=== PATIENT | male | born 1980 | race Caucasian/White ===

== ENCOUNTER 2017-01-20 18:43 | Emergency (ER) | payer OTHER ==
[2017-01-20] MEDS ORDERED: ACETAMINOPHEN 325 MG TABLET PO STA (20:08)
[2017-01-20] MEDS ORDERED: IBUPROFEN 600 MG TABLET PO STA (20:08)
[2017-01-20] MEDS ORDERED: IBUPROFEN 600 MG TABLET PO ONE (20:28)
[2017-01-20] MEDS ORDERED: ACETAMINOPHEN 325 MG TABLET PO ONE (20:28)
[2017-01-20 20:29] VITALS: BP 125/82
--- NOTE | 2017-01-20 20:42 | XRAY Preliminary Report ---
Exam: XR Ankle 3 View RT IMPRESSION: Normal ankle radiography. [facility] SITE ID: [id number]
--- NOTE | 2017-01-20 20:44 | XRAY Report ---
EXAM: RIGHT ANKLE RADIOGRAPHY EXAM DATE: 01/20/2017 08:22 PM. CLINICAL HISTORY: Inversion injury. Ankle pain. COMPARISON: None. TECHNIQUE: 3 views. FINDINGS: Bones: Normal. No fractures or bone lesions. Joints: Normal. No effusion. No subluxations. The ankle mortise is normally aligned. Soft Tissues: Normal. No soft tissue swelling. IMPRESSION: Normal ankle radiography. [facility] Referring Provider Line: [phone] SITE ID: [id number]
--- NOTE | 2017-01-20 20:49 | ED Physician Documentation ---
PD HPI LOWER EXT INJURY - Stated complaint Stated Complaint: RT ANKLE INJ - Chief complaint Chief Complaint: Ext Problem - History obtained from History obtained from: Patient - History of Present Illness PD HPI LOW EXT INJURY LOCATION: Right, Ankle Type of injury: Twist (inversion) Timing - onset: Today (had inversion sprain 2-3 months ago and ankle hurts at time after working out, but then with inversion acute injury again today.) Timing - details: Abrupt onset, Still present Worsened by: Moving, Palpating, Other (walking particularly step off or twisting.) Associated symptoms: Swelling. No: Weakness, Numbness Similar symptoms before: No diagnosis (sprain) Recently seen: Not recently seen Review of Systems Skin: denies: Abrasion (s), Laceration (s) Neurologic: denies: Focal weakness, Numbness PD PAST MEDICAL HISTORY - Past Medical History Past Medical History: No - Past Surgical History Ortho: Spine surgery - Present Medications Home Medications: Ambulatory Orders Medication Instructions Recorded Confirmed Ibuprofen [Motrin] 600 mg PO TID #20 tab 01/20/17 - Allergies Allergies/Adverse Reactions: Allergies Allergy/AdvReac Type Severity Reaction Status Date / Time hydromorphone HCl * Allergy Unknown Verified 01/20/17 18:51 [From Dilaudid] - Social History Does the pt smoke?: No Smoking Status: Never smoker Does the pt drink ETOH?: No Does the pt have substance abuse?: No - Immunizations Immunizations are current?: Yes PD ED PE NORMAL - Vitals Vital signs reviewed: Yes - General General: Alert and oriented X 3, No acute distress, Well developed/nourished - Derm Derm: Normal color, Warm and dry, No rash - Extremities Extremities: No calf tenderness / cord, Other (right ankle with tenderness and swelling laterally anterodistal to malleolus. Achilles and medially not tender. ) - Neuro Neuro: No motor deficit, No sensory deficit Results - Vitals Vitals: Oxygen O2 Source Room air - Rads (name of study) ankle Radiology: Prelim report reviewed, EMP read contemporaneously (no fracture right ankle) PD MEDICAL DECISION MAKING - ED course Complexity details: reviewed results, considered differential, d/w patient Departure - Departure Disposition: 01 Home, Self Care Clinical Impression: Ankle sprain Qualifiers: Encounter type: initial encounter Involved ligament of ankle: other ligament Laterality: right Qualified Code(s): S93.491A - Sprain of other ligament of right ankle, initial encounter Condition: Stable Record reviewed to determine appropriate education?: Yes Instructions: ED Sprain Ankle W X Ray Prescriptions: Ibuprofen [Motrin] 600 mg PO TID #20 tab Comments: Use ankle brace when up and around for the next 2-3 weeks until it fully healed. There is no fractures on x-ray. This would be an ankle sprain but may have a partial tear of some of the ligaments that can take several weeks to heal up. Progress activity as able and weightbearing is good. No running or vigorous sports however. Use ibuprofen 3 times a day. Add Tylenol if needed. Follow-up with your primary care if not better over the next week. Forms: Activity restrictions Discharge Date/Time: 01/20/17 21:08
== END 2017-01-20 21:08 | disposition home or self-care (01) ==
LOC: ED 18:43
DX: S93.491A Sprain of other ligament of right ankle, initial encounter (principal); X50.9XXA Other and unspecified overexertion or strenuous movements or postures, initial encounter
CPT/HCPCS: 73610; 99283; A9270

== ENCOUNTER 2017-07-01 08:44 | Outpatient (CLI) | payer OTHER ==
--- NOTE | 2017-07-01 11:53 | MRI Report ---
EXAM: MRI CERVICAL SPINE WITHOUT CONTRAST EXAM DATE: 07/01/2017 09:20 AM. CLINICAL HISTORY: Cervicalgia. History of surgery in 2011 with artificial disk inserted at C6. COMPARISONS: None available. TECHNIQUE: Multiplanar, multisequence T1-weighted and fluid-sensitive sequences of the cervical spine without contrast. Other: None. FINDINGS: Susceptibility artifact from fixation hardware centered in the region of the C6-C7 disk spa ce significantly limits evaluation of the mid to lower cervical spine. Neurologic Structures: The visualized posterior fossa structures are unremarkable. No signal abnormal ity in the visualized portions of the spinal cord. Alignment: No scoliosis or spondylolisthesis in the visualized portions. Bone Marrow: No gross fracture, bone lesion, or bone marrow edema in the visualized portions. Interspace Levels/Facets: C1-C2: Mild degenerative change anteriorly. C2-C3: Minimal disk osteophyte complex. Mild bilateral facet hypertrophy. Mild right neural foramen s tenosis. C3-C4: Minimal disk osteophyte complex. Mild bilateral facet hypertrophy. Moderate left neural forame n stenosis. C4-C5: Minimal disk osteophyte complex. Mild bilateral facet hypertrophy. Mild right neural foramen s tenosis. C5-C6: Significantly limited evaluation due to artifact. C6-C7: Significantly limited evaluation due to artifact. C7-T1: Significantly limited evaluation due to artifact. T1-T2: Minimal disk osteophyte complex. Mild bilateral facet hypertrophy. No gross stenosis. Musculature: No edema or fatty atrophy. Other: The visualized paravertebral and prevertebral soft tissues are unremarkable. IMPRESSION: 1. Significantly limited evaluation due to artifact from internal fixation hardware. May consider CT or CT myelogram for further evaluation. 2. Minimal degenerative disk and mild degenerative facet changes in the visualized upper to mid cervi ruth spine. 3. Varying degrees of neural foramen stenosis in the visualized upper to mid cervical spine, most pro minent at C3-C4 on the left where there is moderate stenosis. [facility] Referring Provider Line: [phone] SITE ID: [id number]
== END 2017-07-01 08:45 | disposition home or self-care (01) ==
LOC: DI 08:44
PROVIDERS: ATTEND Family Medicine
DX: M47.892 Other spondylosis, cervical region (principal); M50.30 Other cervical disc degeneration, unspecified cervical region
CPT/HCPCS: 72141

== ENCOUNTER 2018-11-24 15:19 | Outpatient (CLI) | payer OTHER ==
[2018-11-24 16:35] VITALS: BP 90/60
--- NOTE | 2018-11-24 16:35 | CONSULTATION NOTE ---
Information from patient questionnaire entered by Cielo Morley. I have reviewed and concur with the information entered by Cielo Morley. This document represents the service I personally performed and the decisions made by me, Mary Lou Guerra MD, [facility]. - History of Present Illness Chief Complaint: Unrefreshed sleep, Fatigue, Frequent awakenings at night I had the pleasure of seeing YO MERLOS today regarding the possibility of him having a sleep disorder. His current complaints are frequent awakenings at nig ht, non-restorative sleep, and daytime sleepiness. The patient tells me that he normally goes to bed around 9:30-10:30 pm, and it takes him variable amount of time to fall asleep. He does not snore much. However, he has been observed to stop breathing in his sleep. His sleeps in the same bed and snores occasionally. He can recall waking up on the average of 3 times during the night. Most of the time he wakes up because of unknown reasons. He looks at the clock every time because he worries that he might not get up in time to go to work. On weekends, he wakes up less frequently during the night. He has not awakened for his own snoring, choking, or having to gasp for air. There is a lot of tossing and turning in his sleep. Generally he can recall having dreams. There is no somniloquy (sleep talking) or somnambulism (sleep walking). He usually wakes up at variable times and does not feel refreshed. He usually does not have a morning headache. During the day he complains of feeling sleepy and fatigued. He has never fallen asleep while driving nor has any accident due to sleepiness. He usually does not take naps during the day. If he naps, upon falling asleep during the day he denies having vivid dreams. He has never experienced sleep paralysis, cataplexy, but reports symptoms of restless leg syndrome. He also reports having impaired concentration during the day. [place] Sleepiness Scale Score: 8 - Past Medical History Past Medical History: Anxiety, Other (plantar fasciitis) - Allergies/Home Medications Medication: none Allergies: Dilaudid Allergies and home medications reviewed: Yes - Social History The patient's occupation is a AM. Patient is and lives in [place]. Smoked in the past 12 months: No Alcohol use: Yes Amount and frequency: 2-3 drinks 1-2 times/month Caffeine use: Yes Amount and frequency: 2-3 cups/day - Family History Family history of sleep disordered breathing: No - Review of Systems Cardiovascular: denies: high blood pressure, palpitations, chest pain, irregular heart rate or pulse, leg or foot swelling, have to sleep sitting up, other: Respiratory: denies: shortness of breath, wheeze, sputum production, chronic cough, other: Gastrointestinal: denies: heartburn, difficulty swallowing, nausea, vomitting, diarrhea, abdominal pain, other: Urinary: denies: incontinence, frequency, urgency, impotence, other: Neurological: denies: headaches, seizure, head trauma, disorientation, speech dysfunction, gait or balance problems, fainting or unconsciousness, other: Psychiatric: reports: anxiety Ear/Nose/Throat: reports: nasal congestion, sinus problems, dry mouth/throat, wisdom teeth removed Endocrine: reports: sluggishness Musculoskeletal: reports: joint pain, back pain Immunologic: reports: sneezing, allergies to food or environment - Physical Examination Vital signs obtained and documented by: Dr. Guerra Blood Pressure: 90/60 Cuff size: regular Heart Rate: 72 O2 Saturation: 97 Height: 5 ft 9 in Weight (kg): 83.915 kg Body Mass Index: 27.3 BMI Classification: Overweight Neck circumference: 15 Mood/affect: normal HEENT: No craniofacial malformation Nostrils: patent to airflow Turbinates: normal Septum: midline Mouth and throat: narrow oropharynx Soft palate: long Hard palate: normal Uvula: normal Tongue: normal in size Tonsils: small Chin and jaw: Retrognathia Neck: normal w/o lymphadenopathy or thyromegaly Heart: regular rate and rhythm Lungs: clear bilaterally Abdomen: soft Extremities: 1+ edema - Impression 1. Suspected Obstructive Sleep Apnea-Hypopnea Syndrome, as suggested by a history of observed cessation of breath while asleep, frequent awakening during the night, unrefreshed sleep, cognitive impairment, and excessive daytime sleepiness. Narrow oropharynx is a common predisposing factor for obstructive sleep apnea-hypopnea syndrome. I recommend proceeding to polysomnography to confirm the diagnosis and to assess severity. I informed the patient of what the sleep studies involve and after some discussion, obtained agreement to proceed. The pathophysiology of obstructive sleep apnea-hypopnea syndrome was discussed with the patient and health risks of cardiovascular and cerebrovascular disease if not treated. 2. Insomnia involving sleep maintenance. Most likely this is due to anxiety and clock watching as it occurs only during week nights. The patient was instructed to set the clock and hide it, so that when he wakes up, he could not see it. - Plan Schedule polysomnography. Hide the alarm clock so that he cannot see it at night. Return for follow-up after sleep study completed. I spent 100% of this 15 minute visit face to face with the patient with greater than 50% of this was spent time counseling the patient and coordination of care.
== END 2018-11-24 15:20 | disposition home or self-care (01) ==
LOC: SC 15:19
PROVIDERS: ATTEND Internal Medicine Pulmonary Disease
DX: R06.81 Apnea, not elsewhere classified (principal); G47.8 Other sleep disorders; R41.89 Other symptoms and signs involving cognitive functions and awareness; G47.10 Hypersomnia, unspecified
CPT/HCPCS: 99203; 99212

== ENCOUNTER 2019-01-05 19:37 | Outpatient (CLI) | payer OTHER | END 2019-01-05 19:38 | disposition home or self-care (01) | LOC: SC 19:37 | PROVIDERS: ATTEND Internal Medicine Pulmonary Disease | DX: G47.10 Hypersomnia, unspecified (principal) | CPT/HCPCS: 95810 ==

== ENCOUNTER 2019-01-19 13:52 | Outpatient (CLI) | payer OTHER ==
--- NOTE | 2019-01-19 15:08 | SLEEP CARE CONSULTATION ---
Information from patient questionnaire entered by Cielo Morley. I have reviewed and concur with the information entered by Cielo Morley. This document represents the service I personally performed and the decisions made by me, Mary Lou Guerra MD, [facility]. History of Present Illness Initial [place] Sleepiness Scale score: 8 Current [place] Sleepiness Scale score: 7 Additional HPI information: HPI: Mr. Dimas returned for follow up of the sleep study he had on 01/05/2019. The polysomnography showed that the patient had normal sleep efficiency. The sleep architecture was normal as well. Respiratory monitoring showed no significant sleep disordered breathing (AHI = 3.8) or hypoxia (mike oxygen saturation of 86% and only 0.6% to the total sleep time was spent with oxygen saturation below 90%). The few respiratory events occurred almost exclusively during supine REM sleep (supine AHI = 5.3; non-supine = 2.52). Snore was loud in intensity. There was no significant periodic leg movement of sleep. Cardiac rhythm was normal sinus rhythm without significant arrhythmia. No abnormal behavior (parasomnia) observed during the night. The patient was informed of these findings. I explained to him that overall the study is negative for sleep-disordered breathing. However, during supine sleep he has mild obstructive sleep apnea-hypopnea. The patient states that he sleeps mostly on his back at home. Allergies and Home Medications Drug allergies reviewed: Yes Home medication list reviewed: Yes Review of Systems Review of systems same as previous: Yes Impression and Plan IMPRESSION: 1. Suspected Obstructive Sleep Apnea-Hypopnea Syndrome, based on his symptoms of loud snore, observed apneas, frequent awakenings, and excessive daytime sleepiness. His recent sleep study could have been falsely negative because he slept half the night on his side. PLAN: 1. Repeat the in-laboratory polysomnography with the patient only sleep supine. 2. Return for follow up after the sleep study. I spent 100% of this 15 minute visit face to face with the patient with greater than 50% of this was spent time counseling the patient and coordination of care.
== END 2019-01-19 13:53 | disposition home or self-care (01) ==
LOC: SC 13:52
PROVIDERS: ATTEND Internal Medicine Pulmonary Disease
DX: R06.83 Snoring (principal); R06.81 Apnea, not elsewhere classified; G47.10 Hypersomnia, unspecified; G47.8 Other sleep disorders
CPT/HCPCS: 99212; 99213

== ENCOUNTER 2019-02-16 20:36 | Outpatient (CLI) | payer OTHER | END 2019-02-16 20:37 | disposition home or self-care (01) | LOC: SC 20:36 | PROVIDERS: ATTEND Internal Medicine Pulmonary Disease | DX: R06.83 Snoring (principal); R06.81 Apnea, not elsewhere classified | CPT/HCPCS: 95810 ==

== ENCOUNTER 2019-06-01 03:45 | Outpatient (CLI) | payer OTHER ==
[2019-06-01 16:32] VITALS: BP 112/68
--- NOTE | 2019-06-01 16:32 | SLEEP CARE CONSULTATION ---
Information from patient questionnaire entered by Cielo Morley. I have reviewed and concur with the information entered by Cielo Morley. This document represents the service I personally performed and the decisions made by me, Venita Montelongo, RN, MSN, [employer]. History of Present Illness Initial [place] Sleepiness Scale score: 8 Current [place] Sleepiness Scale score: 6 Additional HPI information: YO MERLOS returns for follow up of the recently performed polysomnography. I explained the pathophysiology behind obstructive sleep apnea. Patient does not have sleep apnea and was advised how weight gain could increase the risk of developing sleep apnea in the future. I strongly encouraged the patient to lose weight. Patient has light and infrequent snoring. Snoring can be reduced by weight loss. Weight loss is best achieved with diet consult. Patient instructed to contact PCP for referral. Snoring can also be treated with an oral appliance from a dentist. Advised to check insurance coverage. Patient not interested. In addition, an ENT evaluation can be do to see if other treatment is indicated. Patient reports difficulty breathing through his nose nightly - changing positions to breathe better. Patient counseled not drink alcohol less than 4 hours before bedtime as it can increase snoring and apnea. Patient was cautioned about risks of drowsy driving until sleepiness symptoms resolve. Patient denies drowsy driving. AAS patient education on snoring and sleep apnea reviewed - has at home. ] Sleep Study - Results Polysomnography/Home Sleep Study results: The quality of the study is good. The patient had reduced sleep efficiency due to sleep onset insomnia. The sleep architecture was normal. Respiratory monitoring showed no significant sleep disordered breathing (AHI = 1.8) or hypoxia (mike oxygen saturation of 87% and only 0.3% to the total sleep time was spent with oxygen saturation below 90%). The patient slept adequately in supine position (supine AHI = 2.0; non-supine = 1.06). Snore was infrequent and light in intensity. There was no significant periodic leg movement of sleep. Cardiac rhythm was normal sinus rhythm without significant arrhythmia. No abnormal behavior (parasomnia) observed during the night. Allergies and Home Medications Known drug allergies: Yes (dilaudid ) Home medication list reviewed: Yes Allergy and home medication list: melatonin 10mg HS Review of Systems Review of systems same as previous: Yes Physical Exam Blood Pressure: 112/68 Cuff size: long Heart Rate: 66 O2 Saturation: 98 Height: 5 ft 9 in Weight: 196 lb (with fatigues and boots ) Body Mass Index: 28.9 BMI Classification: Overweight Impression and Plan Snoring, light and infrequent, but no significant sleep disordered breathing. He is advised weight loss could reduce snoring and apnea risk. BMI chart reviewed and 20 pounds would bring him down close to normal weight. A diet consultation can be helpful in achieving weight loss. In addition, it appears he is waking to difficulty breathing through his nose so he is advised to follow up with PCP for ENT evaluation. Snoring and nasal congestion can contribute to sleep fragmentation. Perhaps this is part of why he is waking a few times in the night. In addition, we talked about trying positional therapy as his 1st sleep study showed slight increase in apnea supine and this sleep study his few apnea were primarily in supine REM sleep to see if sleep any better. * Follow up with PCP for ENT referral * Attempt to lose weight * Avoid alcohol consumption near bedtime * The patient is cautioned about driving until sleepiness is completely resolved. * Return as needed. * Time Spent with Patient (minutes): 25 I spent 100% of this visit face to face with the patient with greater than 50% of this was spent time counseling the patient and coordination of care.
== END 2019-06-01 03:46 | disposition home or self-care (01) ==
LOC: SC 03:45
PROVIDERS: ATTEND Nurse Practitioner Family
DX: R06.83 Snoring (principal); E66.3 Overweight; Z68.28 Body mass index [BMI] 28.0-28.9, adult
CPT/HCPCS: 99212; 99214

== ENCOUNTER 2021-06-25 12:51 | Outpatient (CLI) | payer OTHER ==
[2021-06-25 21:46] VITALS: BP 134/88
--- NOTE | 2021-06-25 21:46 | SLEEP CARE CONSULTATION ---
Information from patient questionnaire entered by Siddharth Rubio MA. I have reviewed and concur with the information entered by Siddharth Rubio MA. This document represents the service I personally performed and the decisions made by me, Mary Lou Guerra MD, [facility]. History of Present Illness Service Date and Time: 06/25/2021 1251 Reason for follow up: annual (LAST SEEN 05/2019, NOT ON CPAP) HPI additional information: Mr. Dimas returned for follow up after last seen 3 years ago. Then, he had two in-lab sleep studies, both were negative for sleep-disordered breathing. He continues to report waking up frequent at night. He complains of sleep onset insomnia when going to bed at 9 pm. He gets up at 4 am on weekdays and 7 am on weekends. He continues to snore loudly, and his sees him quit breathing. Subjective Initial [place] Sleepiness Scale score: 8 Current [place] Sleepiness Scale score: 4 (2021) Allergies and Home Medications Drug allergies reviewed: Yes Home medication list reviewed: Yes Allergy and home medication list: Allergies hydromorphone HCl * [From Dilaudid] Allergy (Verified 01/20/17 18:51) Unknown Review of Systems Review of systems same as previous: Yes Physical Exam Vital signs obtained and entered by: Jose RUBIO CMA BRE Blood Pressure: 134/88 (RIGHT, PULSE 92, RESP 16,) Cuff size: wrist Heart Rate: 70 O2 Saturation: 96 (NYLON MASK) Height: 5 ft 9 in Weight: 196 lb (UNIFORM AND BOOTS) Body Mass Index: 28.9 BMI Classification: Overweight Impression and Plan IMPRESSION: 1. Suspected Obstructive Sleep Apnea-Hypopnea Syndrome, based on his symptoms of loud snore, observed apneas, frequent awakenings, and excessive daytime sleepiness. Because his sleep study was over 2 years ago, I will order another one. He requests a home sleep apnea test (HSAT). 2. Insomnia, involving sleep onset and maintenance. The sleep onset insomnia is due to the inconsistency in his waking up time. Because on weekends he gets up at 7 am, his physiologic bedtime is not until 11 pm at the earliest. Therefore, when he goes to bed at 9 pm, it appropriately takes him 2 hours to fall asleep. The solution is maintain a regular wakeup time every day. PLAN: 1. Order a home sleep apnea test (HSAT). 2. Return for follow up after the sleep study. Follow up with Sleep Care in: 1-2 months Visit Type: In Office Time Spent with Patient (minutes): 15 Provider Statement: I spent 100% of the Face to Face Visit with the patient with greater than 50% spent counseling the patient and coordination of care.
== END 2021-06-25 12:52 | disposition home or self-care (01) ==
LOC: SC 12:51
PROVIDERS: ATTEND Internal Medicine Pulmonary Disease
DX: R06.83 Snoring (principal); R06.81 Apnea, not elsewhere classified; G47.8 Other sleep disorders; G47.10 Hypersomnia, unspecified; G47.09 Other insomnia
CPT/HCPCS: 99212

== ENCOUNTER 2021-07-11 12:26 | Outpatient (CLI) | payer OTHER | END 2021-07-11 12:27 | disposition home or self-care (01) | LOC: SC 12:26 | PROVIDERS: ATTEND Internal Medicine Pulmonary Disease | DX: G47.33 Obstructive sleep apnea (adult) (pediatric) (principal); R09.02 Hypoxemia | CPT/HCPCS: 95806 ==

== ENCOUNTER 2021-07-27 14:40 | Outpatient (CLI) | payer OTHER ==
[2021-07-27 15:33] VITALS: BP 134/93
--- NOTE | 2021-07-27 15:33 | SLEEP CARE CONSULTATION ---
Information from patient questionnaire entered by Siddharth Rubio MA. I have reviewed and concur with the information entered by Siddharth Rubio MA. This document represents the service I personally performed and the decisions made by , Johana Boyd ARNP. History of Present Illness Service Date and Time: 07/27/2021 1440 Initial [place] Sleepiness Scale score: 8 Current [place] Sleepiness Scale score: 13 Additional HPI information: YO MERLOS returns for follow up and results of the recently performed home sleep study. I explained the pathophysiology behind obstructive sleep apnea. We then spent quite a bit of time discussing different treatment options. For mild obstructive sleep apnea, surgery and oral appliance are alternatives to nasal CPAP therapy but in moderate or severe cases, nasal CPAP is the most effective a nd reliable treatment. Because apnea is primarily in supine position, then positional management therapy could be effective. Methods discussed such as positioning with pillows to prevent supine sleep. I reviewed the impact of weight changes on sleep apnea and strongly recommended losing weight. After some discussion, the patient opted to go with the nasal CPAP therapy. Nasal autoCPAP set at 4-15 cmH20 will be ordered with rationale explained. A manual titration study will be ordered if unable to find optimal pressure with office adjustments. I explained how CPAP machine works and what to expect when using the machine. Using CPAP every night in order to get used to it was emphasized. Patient advised to put CPAP mask on before getting into bed so as not to fall asleep without CPAP. To assist acclimation to CPAP use, it could also be used for a short time during day while reading or watching TV. The patient was instructed to call the CPAP supplier to discuss any mechanical problem that may occur. If the mask given is uncomfortable or is difficult to keep on through the night even with adjustment, contact the CPAP supplier as many will replace with another mask style if notified before 30 days. If snoring or perceives is not getting enough air or too much air from the machine, notify this office. [facility] patient education PAP tips reviewed and given to patient. Patient does not drink alcohol. Patient was cautioned about risks of drowsy driving until sleepiness symptoms resolve. Patient denies drowsy driving. Sleep Study - Results Type of Sleep Study: Home sleep study (F/U HOME STUDY, 07/11/21 [facility] Polysomnography/Home Sleep Study results: Physician Impression: The quality of the study is good. The length of the study is adequate (> 240 minutes). Please also see the tabulated and graphic data. 1. Obstructive Sleep Apnea-Hypopnea (ICD-10 G47.33), mild, with an AHI of 7.5/hr and mike SaO2 of 80%. During the study, the patient had 18 apneas (18 obstructive, 0 central, 0 mixed) and 29 hypopneas. The longest episode lasted 68.5 seconds. The respiratory events occurred almost exclusively during supine sleep (supine AHI was 19.1 and non-supine, 3.45). 2. Hypoxemia (ICD-10 R09.02), mild, with the lowest oxygen saturation of 80 % and 1.6 minutes with SaO2 under 90%. Baseline oxygen saturation was normal (Average oxygen saturation was 95%). Allergies and Home Medications Home medication list reviewed: Yes (no changes) Allergy and home medication list: Allergies hydromorphone HCl * [From Dilaudid] Allergy (Verified 01/20/17 18:51) Unknown Review of Systems Review of systems same as previous: Yes (no changes) Physical Exam Vital signs obtained and entered by: Jose RUBIO CMA AABRE Blood Pressure: 134/93 (LEFT, RESP 18, PULSE 88, ) Cuff size: wrist Heart Rate: 70 O2 Saturation: 97 Height: 5 ft 9 in Weight: 190 lb Body Mass Index: 28.0 BMI Classification: Overweight Impression and Plan 1. Obstructive Sleep Apnea-Hypopnea Syndrome, mild, with lowest oxygen saturation of 80%. Obviously this is the cause of the patients symptoms of unrefreshed sleep, and excessive daytime sleepiness. Positive pressure therapy could benefit anxiety. As mentioned above, the patient will be started on nasal autoCPAP therapy with pressure set at 4-15 cmH2O. Compliance guidelines also reviewed. A copy of compliance guidelines will be given for reference at check out. Because the apnea is more severe supine, I instructed to avoid sleeping supine using pillow positioning until able to start CPAP use. 2. Hypoxemia, mild, with the lowest oxygen saturation of 80 % and 1.6 minutes with SaO2 under 90%. His baseline oxygen saturation was normal with an average oxygen saturation of 95%. * Nasal auto CPAP therapy, pressure at 4-15 cm H2O. * Attempt to lose weight. * Avoid alcohol consumption near bedtime. * Avoid supine sleep until using CPAP. * The patient is again cautioned about driving until sleepiness completely resolves. * Return one month after CPAP obtained. I will assess response to therapy and compliance at that time. Counseling Topics: Sleeping position, Weight loss health impact Visit Type: In Office Time Spent with Patient (minutes): 27 Provider Statement: I spent 100% of the Face to Face Visit with the patient with greater than 50% spent counseling the patient and coordination of care.
== END 2021-07-27 14:41 | disposition home or self-care (01) ==
LOC: SC 14:40
PROVIDERS: ATTEND Nurse Practitioner Family
DX: G47.33 Obstructive sleep apnea (adult) (pediatric) (principal); R09.02 Hypoxemia
CPT/HCPCS: 99212; 99213

== ENCOUNTER 2021-11-16 12:55 | Outpatient (CLI) | payer OTHER ==
--- NOTE | 2021-11-16 13:59 | SLEEP CARE CONSULTATION ---
Information from patient questionnaire entered by Siddharth Rubio MA. I have reviewed and concur with the information entered by Siddharth Rubio MA. This document represents the service I personally performed and the decisions made by , Johana Boyd ARNP. History of Present Illness Service Date and Time: 11/16/2021 1255 Previous diagnosis: Mild, Obstructive Sleep Apnea-Hypopnea Syndrome AHI: 7.5 (in 2021) Reason for follow up: first compliance (RESMED, GIBSON 08/20/2021 ) Equipment type: CPAP Equipment obtained from: [facility] (got initial supplies) Mask style: Nasal Mask brand: Respironics (Dreamwear) Backup mask available: No (will keep old mask when replaced) Type of Sleep Study: Home sleep study (F/U HOME STUDY, 07/11/21 [facility],) HPI additional information: YO MERLOS was diagnosed to have mild, AHI 7.5, obstructive sleep apnea- hypopnea syndrome and returned today for CPAP therapy first compliance follow- up. Sleep Study - Results Type of Sleep Study: Home sleep study (F/U HOME STUDY, 07/11/21 [facility],) CPAP Compliance Data - Data Reviewed with Patient Average duration of nightly device use: 4 HOURS 37 MINUTES Compliance rate %: 33 (10/15/21-11/13/21; 30 days; 20 days 60% with 19/20 days used) Current pressure setting (cmH2O): 4-15 (median 4.1, avg 5.3, max 5.8) Average residual AHI: 0.3 Central apnea: .1 Obstructive apnea: .1 Hypopnea: .0 Average large leak: .0 Subjective Missed days of use due to: reports: family emergency, other (power outage) Patient concerns: reports: mask leak noise (from top of head). denies: aerophagia, mask discomfort, air blowing in eyes, condensation in mask/hose, nasal congestion, dry mouth, nose, throat, other Observed to snore while using device: No Current pressure setting perceived as: comfortable On therapy, patient: reports: sleeping better, more rested overall. denies: drowsiness while driving Initial [place] Sleepiness Scale score: 8 Current [place] Sleepiness Scale score: 10 (11/16/2021) Allergies and Home Medications Home medication list reviewed: Yes (no changes) Allergy and home medication list: Allergies hydromorphone HCl * [From Dilaudid] Allergy (Verified 01/20/17 18:51) Unknown Review of Systems Review of systems same as previous: Yes (no changes) Physical Exam Vital signs obtained and entered by: TONYA MIN Blood Pressure: 137/78 (right) Cuff size: wrist Heart Rate: 78 O2 Saturation: 98 (n95) Height: 5 ft 9 in Impression and Plan 1. Obstructive Sleep Apnea-Hypopnea Syndrome, mild, with poor treatment compliance and excellent apnea control. On CPAP therapy, the patient has better sleep quality and is more rested overall. Patient had a emergency town and was unable to start using CPAP until October 27. In the last 20 days he has used the machine 19/20 days with 60% compliance. Patient has had trouble with air leaking from the top hose next to his hose on the top of his head. I checked it at the office and it appears that it is not sitting all the way down. I advised him to check with his DME to see if they can replace this as possibly defective. He voiced understanding. The patients pressure will be changed to autoCPAP 4-6 cmH20 to reflect pressures being used. Patient advised to contact me if pressure change is uncomfortable so that it can be adjusted. Goals for apnea control discussed. Compliance guidelines reviewed for insurance coverage. Patient was counseled on the difference between meeting compliance and optimal use of CPAP. Optimal use of CPAP is use of CPAP with all sleep to obtain maximum benefit of treatment. Patient is encouraged to use CPAP with all sleep. Patient's apnea severity and rationale for treatment to reduce apnea, improve sleep quality and reduce cardiovascular and cerebrovascular events was reviewed. I also reviewed the benefit of consistent device use of CPAP for anxiety. * Change auto CPAP pressure to 4-6 cmH2O * Notify me if snoring with mask or feeling that the pressure is too much or too little * Attempt to lose weight * Call this office if any problems using CPAP * Return for follow up in 1-2 months, or sooner if concerns arise Counseling Topics: Spare mask, Weight loss health impact Visit Type: In Office Time Spent with Patient (minutes): 25 Provider Statement: I spent 100% of the Face to Face Visit with the patient with greater than 50% spent counseling the patient and coordination of care.
[2021-11-16 14:00] VITALS: BP 137/78
== END 2021-11-16 12:56 | disposition home or self-care (01) ==
LOC: SC 12:55
PROVIDERS: ATTEND Nurse Practitioner Family
DX: G47.33 Obstructive sleep apnea (adult) (pediatric) (principal)
CPT/HCPCS: 99212; 99213

== ENCOUNTER 2022-01-02 15:18 | Outpatient (CLI) | payer OTHER ==
[2022-01-02 15:53] VITALS: BP 126/78
--- NOTE | 2022-01-02 15:53 | SLEEP CARE CONSULTATION ---
Information from patient questionnaire entered by Debbie Beckwith. I have reviewed and concur with the information entered by Debbie Beckwith. This document represents the service I personally performed and the decisions made by , Johana Boyd ARNP. History of Present Illness Service Date and Time: 01/02/2022 1518 Previous diagnosis: Mild, Obstructive Sleep Apnea-Hypopnea Syndrome AHI: 7.5 Reason for follow up: other (F/U PRESSURE CHANGE) Equipment type: CPAP (RESMED) Equipment obtained from: [facility] (needs to contact them for supplies) Mask style: Nasal Backup mask available: No (will keep old mask when replaced) Last cushion change: hasn't yet Type of Sleep Study: Home sleep study (F/U HOME STUDY, 07/11/21 [facility],) HPI additional information: YO MERLOS was diagnosed to have mild, AHI 7.5, obstructive sleep apnea- hypopnea syndrome and returned today for CPAP therapy two month follow-up. Sleep Study - Results Type of Sleep Study: Home sleep study (F/U HOME STUDY, 07/11/21 [facility],) CPAP Compliance Data - Data Reviewed with Patient Average duration of nightly device use: 6 HOURS, 32 MINUTES Compliance rate %: 93 (11/01/21 TO 12/30/21; 59/60 days used) Current pressure setting (cmH2O): 4-6 Average residual AHI: 0.4 Subjective Patient concerns: reports: mask discomfort (tends to slide on face). denies: aerophagia, air blowing in eyes, mask leak noise, condensation in mask/hose, nasal congestion, dry mouth, nose, throat, epistaxis Observed to snore while using device: No Current pressure setting perceived as: comfortable On therapy, patient: reports: sleeping better, awakening more refreshed, being more awake and alert during the day, more rested overall Initial [place] Sleepiness Scale score: 8 Current [place] Sleepiness Scale score: 13 (01/02/22) Allergies and Home Medications Drug allergies reviewed: Yes (hydromorphone) Home medication list reviewed: Yes (no changes) Allergy and home medication list: Allergies hydromorphone HCl * [From Dilaudid] Allergy (Verified 01/20/17 18:51) Unknown Review of Systems Review of systems same as previous: Yes (no changes) Physical Exam Vital signs obtained and entered by: N.BYNG, MA Blood Pressure: 126/78 (LEFT ARM ) Cuff size: regular Heart Rate: 68 O2 Saturation: 97 Height: 5 ft 9 in Weight: 202 lb Body Mass Index: 29.8 BMI Classification: Overweight Impression and Plan 1. Obstructive Sleep Apnea-Hypopnea Syndrome, mild, with good treatment compliance and excellent apnea control. On CPAP therapy, the patient has better sleep quality and is more rested overall. Patient has significant improvement of his sleep apnea and is satisfied with current CPAP therapy. Patient denies problems with oral dryness, nasal congestion, epistaxis, skin irritation or aerophagia. Patient's apnea severity and rationale for treatment to reduce apnea, improve sleep quality and reduce cardiovascular and cerebrovascular e vents was reviewed. I also reviewed the benefit of consistent device use of CPAP for anxiety. * Continue auto CPAP pressure at 4-6 cmH2O * Notify me if snoring with mask or feeling that the pressure is too much or too little * Attempt to lose weight * Call this office if any problems using CPAP * Return for follow up in 3 months, or sooner if concerns arise Counseling Topics: Spare mask, Weight loss health impact Visit Type: In Office Time Spent with Patient (minutes): 20 Provider Statement: I spent 100% of the Face to Face Visit with the patient with greater than 50% spent counseling the patient and coordination of care.
== END 2022-01-02 15:19 | disposition home or self-care (01) ==
LOC: SC 15:18
PROVIDERS: ATTEND Nurse Practitioner Family
DX: G47.33 Obstructive sleep apnea (adult) (pediatric) (principal); E66.3 Overweight; Z68.29 Body mass index [BMI] 29.0-29.9, adult
CPT/HCPCS: 99212; 99213

== ENCOUNTER 2022-03-27 15:40 | Outpatient (CLI) | payer OTHER ==
--- NOTE | 2022-03-27 15:46 | SLEEP CARE CONSULTATION ---
Information from patient questionnaire entered by Debbie Beckwith. I have reviewed and concur with the information entered by Debbie Beckwith. This document represents the service I personally performed and the decisions made by , Johana Boyd ARNP. History of Present Illness Service Date and Time: 03/27/2022 1540 Previous diagnosis: Mild, Obstructive Sleep Apnea-Hypopnea Syndrome AHI: 7.5 Reason for follow up: three month Equipment type: CPAP (RESMED) Equipment obtained from: [facility] (getting supplies) Mask style: Nasal Mask brand: Respironics Backup mask available: No (will keep old mask when replaced) Last cushion change: 1 month Type of Sleep Study: Home sleep study (F/U HOME STUDY, 07/11/21 [facility],) HPI additional information: YO MERLOS was diagnosed to have mild, AHI 7.5, obstructive sleep apnea- hypopnea syndrome and returns via video telehealth visit today for CPAP therapy three month follow-up. Sleep Study - Results Type of Sleep Study: Home sleep study (F/U HOME STUDY, 07/11/21 [facility],) CPAP Compliance Data - Data Reviewed with Patient Average duration of nightly device use: 6 HOURS, 25 MINUTES Compliance rate %: 81 (12/21/21 TO 03/20/22; 77/90 days used) Current pressure setting (cmH2O): 4-6 Average residual AHI: 0.4 Central apnea: 0.2 Obstructive apnea: 0.2 Subjective Missed days of use due to: reports: travel, other (power outage; wake up with mask off face) Patient concerns: reports: other (mask will shift). denies: aerophagia, mask discomfort, air blowing in eyes, mask leak noise, condensation in mask/hose, nasal congestion, dry mouth, nose, throat, epistaxis Observed to snore while using device: No Current pressure setting perceived as: comfortable On therapy, patient: reports: sleeping better, awakening more refreshed, being more awake and alert during the day, more rested overall. denies: drowsiness while driving Initial [place] Sleepiness Scale score: 8 Current [place] Sleepiness Scale score: 11 (03/27/22) Allergies and Home Medications Known drug allergies: No Drug allergies reviewed: Yes Home medication list reviewed: Yes (no changes) Allergy and home medication list: Allergies hydromorphone HCl * [From Dilaudid] Allergy (Verified 01/20/17 18:51) Unknown Review of Systems Review of systems same as previous: Yes (no changes) Physical Exam Vital signs obtained and entered by: VIA PHONE Height: 5 ft 9 in Weight: 200 lb Body Mass Index: 29.5 BMI Classification: Overweight Impression and Plan 1. Obstructive Sleep Apnea-Hypopnea Syndrome, mild, with good treatment compliance and good apnea control. On CPAP therapy, the patient has better sleep quality and is more rested overall. Patient has significant improvement of their sleep apnea and are satisfied with current CPAP therapy. Patient does not use his CPAP when he is traveling. He is currently on route to move to [place] permanently. I discussed with him establishing with a sleep provider in [place] once he is able to get into see a primary care provider. He voiced understanding and agreement with plan of care. Patient's apnea severity and rationale for treatment to reduce apnea, improve sleep quality and reduce cardiovascular and cerebrovascular events was reviewed. I also reviewed the benefit of consistent device use of CPAP for anxiety. 2. Overweight, unspecified. Currently patients BMI is 29.5. Obesity increases the risk of apnea, CPAP pressure requirements and overall health risks especially cardiovascular and diabetes. Thus patient is advised to lose weight. * Continue auto CPAP pressure at 4-6 cmH2O * Notify me if snoring with mask or feeling that the pressure is too much or too little * Attempt to lose weight * Call this office if any problems using CPAP * Return for follow up in 1 year, or sooner if concerns arise Counseling Topics: Spare mask, Weight loss health impact Visit Type: Telehealth Video Video Type: Doximity Patient Location: Home Location of Provider: Office Patient agrees and consents to this telehealth visit type: Yes Patient agrees to have their insurance billed: Yes Time Spent with Patient (minutes): 12 Provider Statement: I spent 100% of the Telehealth Video Call with the patient with greater than 50% spent counseling the patient and coordination of care.
== END 2022-03-27 15:41 | disposition home or self-care (01) ==
LOC: SC 15:40
PROVIDERS: ATTEND Nurse Practitioner Family
DX: G47.33 Obstructive sleep apnea (adult) (pediatric) (principal); E66.3 Overweight; Z68.29 Body mass index [BMI] 29.0-29.9, adult